=== PATIENT | male | born 1955 | race Caucasian/White ===

== ENCOUNTER 2022-06-27 17:23 | Outpatient (CLI) | payer OTHER, MEDICARE | END 2022-06-27 17:24 | disposition EMS.NT | LOC: EMS 17:23 | DX: S61.210A Laceration without foreign body of right index finger without damage to nail, initial encounter (principal); V53.5XXA Driver of pick-up truck or van injured in collision with car, pick-up truck or van in traffic accident, initial encounter; Y93.89 Activity, other specified; Y92.413 State road as the place of occurrence of the external cause ==

== ENCOUNTER 2022-06-27 18:26 | Emergency (ER) | payer OTHER, MEDICARE ==
[2022-06-27] MEDS ORDERED: IBUPROFEN 800 MG TABLET PO STA (19:07)
[2022-06-27] MEDS ORDERED: TETANUS/DIPHTHERIA/PERTUSSIS 0.5 ML SYRINGE IM ONE (19:10)
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
--- NOTE | 2022-06-27 19:48 | XRAY Report ---
PROCEDURE: Hand 3 View RT INDICATIONS: R hand inj TECHNIQUE: Three views of the hand(s) acquired. COMPARISON: None. FINDINGS: Bones: No fractures or dislocations. No suspicious bony lesions. Soft tissues: No suspicious soft tissue calcifications. IMPRESSION: No acute finding. Reviewed by: Mark Chopra MD on 06/27/2022 7:47 PM PST Approved by: Mark Chopra MD on 06/27/2022 7:47 PM PST Station ID: [id number]
--- NOTE | 2022-06-27 19:48 | XRAY Report ---
PROCEDURE: Shoulder 3 View LT INDICATIONS: Shoulder injury TECHNIQUE: 3 views of the shoulder were acquired. COMPARISON: None. FINDINGS: Bones: No fractures or dislocations. No suspicious bony lesions. Visualized ribs appear intact. Soft tissues: No suspicious soft tissue calcifications. IMPRESSION: No acute finding. Reviewed by: Mark Chopra MD on 06/27/2022 7:46 PM PST Approved by: Mark Chopra MD on 06/27/2022 7:46 PM PST Station ID: [id number]
[2022-06-27] MEDS ORDERED: CYCLOBENZAPRINE 10 MG Prepack 2 PO PRN (20:13)
[2022-06-27 20:32] VITALS: BP 140/80
== END 2022-06-27 20:30 | disposition home or self-care (01) ==
LOC: ED 18:26
DX: S60.410A Abrasion of right index finger, initial encounter (principal); S40.012A Contusion of left shoulder, initial encounter; V53.5XXA Driver of pick-up truck or van injured in collision with car, pick-up truck or van in traffic accident, initial encounter; Y93.89 Activity, other specified; Y92.410 Unspecified street and highway as the place of occurrence of the external cause
CPT/HCPCS: 73030; 73130; 90471; 90715; 99282; 99284; A9270